=== PATIENT | male | born 1965 | race Hispanic/Latino ===

== ENCOUNTER → 2022-04-01 | Outpatient (CLI) | payer OTHER ==
[~2022-04-01] MED LIST: ASPIRIN81 MG PO; CHOLESTEROL MED; LISINOPRIL2.5 MG PO; METFORMIN HCL850 MG PO
== END | disposition home or self-care (01) ==
LOC: LAB 13:30 → EDSTATUS 04-04 13:30
PROVIDERS: ATTEND Internal Medicine Gastroenterology
DX: Z01.810 Encounter for preprocedural cardiovascular examination (principal); Z01.812 Encounter for preprocedural laboratory examination; Z12.11 Encounter for screening for malignant neoplasm of colon
CPT/HCPCS: 0223U; 36415; 93005

== ENCOUNTER → 2022-08-01 | Day surgery (SDC) | payer OTHER ==
[~2022-08-01] MED LIST changes: +HYOSCYAMINE SULFATE 0.5 MG/ML INJ ONE; +PROPOFOL IV EMULSION 10 MG/ML 20 ML VIAL ONE
[2022-08-01 16:50] VITALS: BP 125/96
== END | disposition home or self-care (01) ==
LOC: OR 12:22
PROVIDERS: ATTEND Internal Medicine Gastroenterology
DX: Z12.11 Encounter for screening for malignant neoplasm of colon (principal); D12.3 Benign neoplasm of transverse colon; K64.8 Other hemorrhoids; I10 Essential (primary) hypertension; E11.9 Type 2 diabetes mellitus without complications; E78.5 Hyperlipidemia, unspecified; Z01.810 Encounter for preprocedural cardiovascular examination; Z79.82 Long term (current) use of aspirin; Z79.84 Long term (current) use of oral hypoglycemic drugs; Z79.899 Other long term (current) drug therapy
CPT/HCPCS: 36415; 45378; 82948; 93005; J1980